=== PATIENT | male | born 1995 | race Caucasian/White ===

== ENCOUNTER 2016-09-22 17:29 | Emergency (ER) | payer OTHER ==
[~2016-09-22] VITALS: Ht 177.8 cm; Wt 82.1 kg
[~2016-09-22 17:29] MED LIST: EPI PEN SUBQ
[2016-09-22 17:35] VITALS: BP 83/49
--- NOTE | 2016-09-22 17:35 | NUR ---
PT W/C ASSISTED TO BED 7.
[2016-09-22] MEDS ORDERED: LORazepam 2 MG/ML VIAL ONE (17:37)
--- NOTE | 2016-09-22 17:42 | NUR ---
PATIENT PRESENTS TO ED DUE TO STUNG BY BEE IN THE NECK IN HIS BACK YARD. PT STATES IM ALLERGIC TO BEE STING . DENIES N/V/D; SKIN IS PINK/WARM/DRY; AAOX4 , LUNGS CLEAR BL; HR EVEN AND REGULAR; PT DENIES ANY FEVER, CP, SOB, OR COUGH AT THIS TIME; PATIENT STATES PAIN OF 0/10 AT THIS TIME; PATIENT POSITIONED FOR COMFORT; HOB ELEVATED; BEDRAILS UP X2; BED DOWN. PT GOT WEAK WHILE IN THE LOBBY AND IN TRIAGE, DR. ALEJANDRO AWARE AND EVALUATED PT, ATIVAN 2MG IVP GIVEN PER DR. ALEJANDRO ORDER, PUT PT ON NON REBREATHER MASK, IVF ONGOING VIA PERIPHERAL LINE, WELL TOLERATED, PT AAO,SIDERAILS PADDED.
--- NOTE | 2016-09-22 18:02 | NUR ---
DR. ALEJANDRO SAID MAY DO IN AND OUT FOR URINE COLLECTION
--- NOTE | 2016-09-22 18:03 | NUR ---
IN AND OUT DONE NO BLEEDING NOTED, PT AAO, NO SEIZURES NOTED.
--- NOTE | 2016-09-22 18:08 | NUR ---
XRAY AT BEDSIDE
--- NOTE | 2016-09-22 18:08 | NUR ---
DR. ALEJANDRO AWARE OF THE RESULT OF URINE DIPSTICK
--- NOTE | 2016-09-22 18:12 | NUR ---
PT FINISHED WITH ONE LITER OF NS, PER DR. ALEJANDRO ADD ANOTHER LITER OF NS
--- NOTE | 2016-09-22 18:14 | NUR ---
DR. ALEJANDRO TALKING TO MOTHER AND PT AT BEDSIDE AT THIS TIME, PT AAO.
[2016-09-22] MEDS: NACL 0.9% 2,000 ML IV ONE ×2 (18:57→19:36)
--- NOTE | 2016-09-22 19:10 | NUR ---
ASSISTED PT TO CT PT AAO, MOTHER AT BEDSIDE, ON O2 AT 15L NON REBREATHER WELL TOLERATED,CONNECT TO MONITOR DURING TRANSPORT , ONGOING WITH 3RD LITER OF NS VIA PERIPHERAL LINE, PT ABLE TO PARTICIPATE DURING TRANSFER FROM [facility] TO [place] [facility],VITAL SIGN STABLE.
--- NOTE | 2016-09-22 19:23 | NUR ---
PT RETURN FROM CT
--- NOTE | 2016-09-22 19:25 | NUR ---
RECEIVED PT IN STABLE CONDITION FROM ANTONIO CALDERÓN. PT BIB MOTHER C/O BEE STING TODAY WITH ALLERGY TO BEE STINGS. PT STATES NO MEDICAL HX. S/P SEIZURE IN ER TODAY, ATIVAN GIVEN. PT WITH THRID LITER OF NS BOLUS AT THIS TIME. PT DENIES N/V/D; SKIN IS PINK/WARM/DRY; AAOX4 WITH EVEN AND STEADY GAIT; LUNGS CLEAR BL; HR EVEN AND REGULAR; PT DENIES ANY FEVER, CP, SOB, OR COUGH AT THIS TIME; PATIENT STATES PAIN OF 0/10 AT THIS TIME; VSS; PATIENT POSITIONED FOR COMFORT; PT IN [place]; BEDRAILS UP X2; SEIZURE PRECAUTIONS IN PLACE BED DOWN. ER MD MADE AWARE OF PT STATUS.
--- NOTE | 2016-09-22 19:30 | NUR ---
Pt report given to KATHERINE. Transfer of care at this time.
[2016-09-22] MEDS ORDERED: NACL 0.9% 1,000 ML IV ONE (19:35)
--- NOTE | 2016-09-22 20:10 | NUR ---
SPOKE WITH ADMITTING NURSE CABRERA RN AT [facility]. CABRERA STATES SHE IS BUSY AT THIS TIME AND WILL CALL BACK FOR REPORT.
[2016-09-22] MEDS ORDERED: LORazepam 2 MG/ML VIAL IVP ONE (20:15)
--- NOTE | 2016-09-22 20:22 | NUR ---
REPORT GIVEN TO ANTONIO REES AT [facility]. CABRERA MADE AWARE OF TRANSPORT ETA.
--- NOTE | 2016-09-22 20:45 | NUR ---
PT VOIDED 150 ML IN URINAL, STEADY GAIT. PT AOX4, NO SOB, NO SIGNS OF DISTRESS. WILL CONTINUE TO MONITOR.
[2016-09-22] MEDS ORDERED: NACL 0.9% 2,000 ML IV ONE (21:00)
--- NOTE | 2016-09-22 22:06 | NUR ---
Sam wilkerson in [facility] - 09/22/16 at 2208 by DARLEEN CARMELO BUCHANAN FOR TRANSPORT IS [id number]
--- NOTE | 2016-09-22 22:08 | NUR ---
[id number]
--- NOTE | 2016-09-22 22:12 | NUR ---
INFORMED ANTONIO SAHNI AT [facility] THAT PTS TRANSPORT IS DELATED UNTIL 2300.
[2016-09-22 23:50] VITALS: BP 105/69
--- NOTE | 2016-09-22 23:50 | NUR ---
Patient to be transferred to [facility]. Is being transferred due to HIGHER LEVEL OF CARE. Receiving facility has accepting physician and available space. ER physician has signed transfer form. Patient or responsible green party has agreed to transfer and signed form. Patient belongings inventoried and will be sent with patient. Copy of nursing notes, lab reports, EKG, Physicians Orders and X-rays sent with patient. Report called to ANTONIO REES at receiving facility. [facility] EMT AMANDA KELLOGG RIG [id number] ambulance service TOOK PT IN STABLE CONDITION.
--- NOTE | 2016-09-22 23:59 | NUR ---
PT TAKEN BY [facility] TO [facility] 337
== END 2016-09-22 23:59 | disposition short-term general hospital (02) ==
LOC: MED 17:29
DX: R56.9 Unspecified convulsions (principal); F12.10 Cannabis abuse, uncomplicated; M31.1 Thrombotic microangiopathy; M62.82 Rhabdomyolysis; R94.5 Abnormal results of liver function studies
CPT/HCPCS: 36415; 70450; 71010; 80053; 80305; 81001; 82550; 82553; 85025; 93005; 96361; 96374; 99285; C1758; G0480; G0482; J2060; J7030; Q0092